=== PATIENT | female | born 1970 | race Caucasian/White ===

== ENCOUNTER 2019-02-15 06:50 | Emergency (ER) | payer SELFPAY, OTHER | END 2019-02-15 11:05 | disposition home or self-care (01) | LOC: JER 06:50 ==

== ENCOUNTER 2021-07-13 09:49 | Day surgery (SDC) | payer OTHER ==
[2021-07-10 14:23] VITALS: BMI 36.6
[2021-07-13] MEDS ORDERED: TRANEXAMIC ACID 1000 MG/10 ML VIAL ONE (13:15)
[2021-07-13] MEDS ORDERED: VANCOMYCIN 1,000 MG VIAL (RESTRICTED TO ID ONLY) ONE (13:15)
[2021-07-13] MEDS ORDERED: ROPIVACAINE HCL/PF 100 MG/20 ML VIAL ONE (13:52)
[2021-07-13] MEDS ORDERED: MIDAZOLAM HCL 2 MG/2 ML SINGLE DOSE VIAL ONE ×2 (13:52→13:55)
[2021-07-13] MEDS ORDERED: SUCCINYLCHOLINE CHLORIDE 200 MG/10 ML SYRINGE ONE (13:55)
[2021-07-13] MEDS ORDERED: PROPOFOL 20 ML ONE (13:55)
[2021-07-13] MEDS ORDERED: EPINEPHrine 1:1,000 1 MG/1 ML - 30ML VIAL (INJECTION) ONE (14:13)
[2021-07-13] MEDS ORDERED: ceFAZolin SODIUM 1 GM VIAL ONE (14:45)
[2021-07-13] MEDS ORDERED: ONDANSETRON 4 MG/2 ML VIAL ONE (14:49)
[2021-07-13] MEDS ORDERED: DEXAMETHASONE SOD PHOSPHATE 4 MG/1 ML VIAL ONE (14:49)
[2021-07-13] MEDS ORDERED: ACETAMINOPHEN 325 MG TABLET (FP) PO PRN (15:15)
[2021-07-13] MEDS ORDERED: LACTATED RINGERS SOLUTION 1,000 ML IV SCH (15:15)
[2021-07-13] MEDS ORDERED: ONDANSETRON 4 MG/2 ML VIAL IVPUSH PRN (15:15)
[2021-07-13] MEDS ORDERED: oxyCODONE HCL 5 MG TABLET PO PRN (15:15)
[2021-07-13] MEDS ORDERED: PHENYLEPHRINE HCL 10 MG/1 ML SINGLE DOSE VIAL ONE (15:29)
[2021-07-13 17:36] VITALS: TEMP 97.6
[2021-07-13 18:24] VITALS: BP 130/82; PULSE 98
== END 2021-07-13 18:28 | disposition home or self-care (01) ==
LOC: FASU 09:49
PROVIDERS: ATTEND Orthopaedic Surgery Sports Medicine
PROC: 0RBK4ZZ Excision of Left Shoulder Joint, Percutaneous Endoscopic Approach (ICD-10-PCS; 2021-07-13)
PROC: 0PBB4ZZ Excision of Left Clavicle, Percutaneous Endoscopic Approach (ICD-10-PCS; 2021-07-13)
PROC: 0RQK4ZZ Repair Left Shoulder Joint, Percutaneous Endoscopic Approach (ICD-10-PCS; 2021-07-13)
PROC: 0LM24ZZ Reattachment of Left Shoulder Tendon, Percutaneous Endoscopic Approach (ICD-10-PCS; principal; 2021-07-13 15:14)
PROC: 0RNK4ZZ Release Left Shoulder Joint, Percutaneous Endoscopic Approach (ICD-10-PCS; 2021-07-13 15:14)
DX: M75.122 Complete rotator cuff tear or rupture of left shoulder, not specified as traumatic (principal); M75.22 Bicipital tendinitis, left shoulder; M24.112 Other articular cartilage disorders, left shoulder; M94.212 Chondromalacia, left shoulder; M65.812 Other synovitis and tenosynovitis, left shoulder; M75.02 Adhesive capsulitis of left shoulder; M19.012 Primary osteoarthritis, left shoulder
CPT/HCPCS: 84703; 94760